=== PATIENT | female | born 1965 | race Hispanic/Latino ===

== ENCOUNTER 2021-05-07 11:15 | Emergency (ER) | payer SELFPAY ==
--- NOTE | 2021-05-07 13:08 | RAD REPORT ---
EXAM DESCRIPTION: RAD - Chest Single View - 05/07/2021 1:03 pm CLINICAL HISTORY: CHEST PAIN COMPARISON: No comparisons FINDINGS: Lines: None. Lungs: No evidence of edema or pneumonia. Pleural: No significant pleural effusions or pneumothorax. Cardiac: The heart size is within normal limits. Bones: No acute fractures. Other: IMPRESSION: No acute cardiopulmonary disease.
[2021-05-07] MEDS ORDERED: MAGNES/ALUMIN/SIMET 30ML UCUP ONE (13:34)
[2021-05-07] MEDS ORDERED: LIDOCAINE VISCOUS 2% SOLN 15 ML UDC ONE (13:34)
[2021-05-07 13:38] LABS: Absolute Lymphocytes (CBC) 1.8 K/uL (0.7-4.9); Basophils % 0.3 % (0-1.3); Lymphocytes % 14.6 % (15.3-44.8); MPV 7.8 fL (7.6-11.3); RBC Red Blood Cell Count 4.19 M/uL (3.86-4.86)
[2021-05-07 13:39] LABS: Protime INR 1.01
[2021-05-07 13:58] LABS: ALT/SGPT 78 U/L (12-78); AST/SGOT 106 U/L (15-37); Albumin 3.8 g/dL (3.4-5.0); Alkaline Phosphatase 111 U/L (45-117); BUN Blood Urea Nitrogen 13 mg/dL (7-18); Bicarbonate 25 mmol/L (21-32); Bilirubin Direct 0.2 mg/dL (0-0.2); Bilirubin Total 0.5 mg/dL (0.2-1.0); Glucose Level 118 mg/dL (74-106); Magnesium 2.1 mg/dL (1.8-2.4); NT PRO-BNP 87 pg/mL (<125); Potassium 3.1 mmol/L (3.5-5.1); Protein, Total 7.8 g/dL (6.4-8.2); Sodium Level 142 mmol/L (136-145); Troponin (Emerg Dept Use Only) < 0.02 ng/mL (0.0-0.045)
--- NOTE | 2021-05-07 15:17 | EDPHYS ---
Physician Documentation [facility] Name: Celia Smith Age: 56 yrs Sex: Female : 1965 Arrival Date: 05/07/2021 Time: 11:19 Bed 15 Private MD: ED Physician Nahum Esquivel HPI: 05/07 20:08 This 56 yrs old Female presents to ER via Ambulatory with complaints of Chest kdr Pain. 20:08 The patient or guardian reports chest pain that is located primarily in the substernal kdr area, xiphoid area. Onset: this morning. The pain does not radiate. Associated signs and symptoms: The patient has no apparent associated signs or symptoms, Pertinent positives: She states she feels like her medicines get stuck when she swallows and that the discomfort and tightness is in the subxiphoid region, Pertinent negatives:. The chest pain is described as aching, dull, a pressure. Duration: The patient or guardian reports multiple episodes, that are intermittent, that wax and wane, with no pattern. Severity of pain: At its worst the pain was mild moderate in the emergency department the pain is unchanged. The patient has not experienced similar symptoms in the past. 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 - Social history:: Smoking status: Patient denies any tobacco usage or history of. Patient/guardian denies using alcohol, street drugs. ROS: 20:08 Constitutional: Negative for fever, chills, and weight loss, Eyes: Negative for injury, kdr pain, redness, and discharge, ENT: Negative for injury, pain, and discharge, Neck: Negative for injury, pain, and swelling, Respiratory: Negative for shortness of breath, cough, wheezing, and pleuritic chest pain, Abdomen/GI: Negative for abdominal pain, nausea, vomiting, diarrhea, and constipation, Back: Negative for injury and pain, : Negative for injury, bleeding, discharge, and swelling, MS/Extremity: Negative for injury and deformity, Skin: Negative for injury, rash, and discoloration, Neuro: Negative for headache, weakness, numbness, tingling, and seizure activity. Psych: Negative for depression, anxiety, suicide ideation, homicidal ideation, and hallucinations, Allergy/Immunology: Negative for hives, rash, and allergies, Endocrine: Negative for neck swelling, polydipsia, polyuria, polyphagia, and marked weight changes, Hematologic/Lymphatic: Negative for swollen nodes, abnormal bleeding, and unusual bruising. 20:08 Cardiovascular: Positive for chest pain, Negative for edema, orthopnea, palpitations, paroxysmal nocturnal dyspnea. Exam: 20:08 Constitutional: This is a well developed, well nourished patient who is awake, alert, kdr and in no acute distress. Head/Face: Normocephalic, atraumatic. Eyes: Pupils equal round and reactive to light, extra-ocular motions intact. Lids and lashes normal. Conjunctiva and sclera are non-icteric and not injected. Cornea within normal limits. Periorbital areas with no swelling, redness, or edema. Neck: Trachea midline, no thyromegaly or masses palpated, and no cervical lymphadenopathy. Supple, full range of motion without nuchal rigidity, or vertebral point tenderness. No Meningismus. Chest/axilla: Normal chest wall appearance and motion. Nontender with no deformity. No lesions are appreciated. Cardiovascular: Regular rate and rhythm with a normal S1 and S2. No gallops, murmurs, or rubs. Normal PMI, no JVD. No pulse deficits. Respiratory: Lungs have equal breath sounds bilaterally, clear to auscultation and percussion. No rales, rhonchi or wheezes noted. No increased work of breathing, no retractions or nasal flaring. Abdomen/GI: Soft, non-tender, with normal bowel sounds. No distension or tympany. No guarding or rebound. No evidence of tenderness throughout. Back: No spinal tenderness. No costovertebral tenderness. Full range of motion. Skin: Warm, dry with normal turgor. Normal color with no rashes, no lesions, and no evidence of cellulitis. MS/ Extremity: Pulses equal, no cyanosis. Neurovascular intact. Full, normal range of motion. Neuro: Awake and alert, GCS 15, oriented to person, place, time, and situation. Cranial nerves II-XII grossly intact. Motor strength 5/5 in all extremities. Sensory grossly intact. Cerebellar exam normal. Normal gait. Psych: Awake, alert, with orientation to person, place and time. Behavior, mood, and affect are within normal limits. 20:23 ECG was reviewed by the Attending Physician. [facility] Vital Signs: 11:40 BP 138 / 72; Pulse 83; Resp 18; Temp 98.1; Pulse Ox 100% on R/A; Weight 53.52 kg; ap3 Height 4 ft. 11 in. (149.86 cm); Pain 5/10; 14:19 BP 132 / 61; Pulse 70; Resp 17; Pulse Ox 99% ; oh 15:44 BP 122 / 65; Pulse 86; Resp 17; Pulse Ox 100% on R/A; oh 11:40 Body Mass Index 23.83 (53.52 kg, 149.86 cm) ap3 MDM: 15:17 Patient medically screened. [facility] 20:08 Data reviewed: vital signs, nurses notes, lab test result(s), radiologic studies. kdr Counseling: I had a detailed discussion with the patient and/or guardian regarding: the historical points, exam findings, and any diagnostic results supporting the discharge/admit diagnosis, lab results, radiology results, the need for outpatient follow up. 05/07 12:34 Order name: Basic Metabolic Panel [facility] 05/07 12:34 Order name: CBC with Diff; Complete Time: 14:45 [facility] 05/07 12:34 Order name: LFT's; Complete Time: 14:45 [facility] 05/07 12:34 Order name: Magnesium; Complete Time: 14:45 [facility] 05/07 12:34 Order name: NT PRO-BNP; Complete Time: 14:45 [facility] 05/07 12:34 Order name: PT-INR; Complete Time: 14:45 [facility] 05/07 12:34 Order name: Troponin (emerg Dept Use Only); Complete Time: 14:45 [facility] 05/07 12:34 Order name: XRAY Chest (1 view); Complete Time: 14:45 [facility] 05/07 12:34 Order name: EKG; Complete Time: 12:35 [facility] 05/07 12:34 Order name: Cardiac monitoring; Complete Time: 13:31 [facility] 05/07 12:34 Order name: EKG - Nurse/Tech; Complete Time: 14:02 [facility] 05/07 12:34 Order name: Basic Metabolic Panel; Complete Time: 14:45 [facility] 05/07 12:34 Order name: IV Saline Lock; Complete Time: 13:31 [facility] 05/07 12:34 Order name: Labs collected and sent; Complete Time: 14:02 [facility] 05/07 12:34 Order name: O2 Per Protocol; Complete Time: 14:02 [facility] 05/07 12:34 Order name: O2 Sat Monitoring; Complete Time: 14:02 [facility] EC:23 Rate is 71 beats/min. Rhythm is regular, Sinus Rhythm with No ectopy. QRS [place] is kdr Normal. [place] interval is normal. QRS interval is normal. QT interval is normal. Clinical impression: NSR w/ Non-specific ST/T Changes. Administered Medications: 13:00 Drug: GI Cocktail without - (Maalox Suspension 30 ml, Lidocaine Liquid 2 % 15 oh ml) Route: PO; 15:43 Follow up: Response: No adverse reaction oh 15:39 Drug: Potassium Chloride Liquid 40 mEq Route: PO; oh 15:43 Follow up: Response: No adverse reaction oh Disposition Summary: 05/07/21 15:17 Discharge Ordered Location: Home kdr Problem: new kdr Symptoms: are resolved kdr Condition: Fair kdr Diagnosis - Chest pain, unspecified kdr - Gastro-esophageal reflux disease with esophagitis kdr - Hypokalemia kdr Followup: kdr - With: Private Physician - When: 2 - 3 days - Reason: If symptoms return, Further diagnostic work-up, Recheck today's complaints, Continuance of care, Re-evaluation by your physician Discharge Instructions: - Discharge Summary Sheet kdr - Esophagitis kdr - Gastroesophageal Reflux Disease, Adult kdr - Nonspecific Chest Pain, Adult, [id number] kdr - Hypokalemia kdr Forms: - Medication Reconciliation Form kdr - Thank You Letter kdr Prescriptions: - Pepcid 20 mg Oral Tablet - take 1 tablet by ORAL route every 12 hours for 5 days; 10 tablet; Refills: 0, kdr Product Selection Permitted Signatures: Dispatcher [employer] Nahum Brown MD MD kdr Zhanna Bañuelos RN RN ap3 Peggy Hoffman RN RN oh
--- NOTE | 2021-05-07 15:17 | ER ---
Nurse's Notes [facility] Name: Celia Smith Age: 56 yrs Sex: Female : 1965 Arrival Date: 05/07/2021 Time: 11:19 Bed 15 Private MD: Diagnosis: Chest pain, unspecified;Gastro-esophageal reflux disease with esophagitis;Hypokalemia Presentation: 05/07 11:40 Chief complaint: Patient states: she has chest tightness. It started on their way to [place] the [place] [address] two days ago. They called 911, she was taken to [place] and she was given steroids. They told her she was having indigestion and possibly asthma. She was given steriods at that visit and felt better. Today, she feels the same as she did 2 days ago. pain is in the epigastric region, and she states that "it feels like there is food stuck". Coronavirus screen: Client presents with at least one sign or symptom that may indicate coronavirus-19. Standard/surgical mask placed on the client. Ebola Screen: No symptoms or risks identified at this time. Initial Sepsis Screen: Does the patient meet any 2 criteria? No. Patient's initial sepsis screen is negative. Does the patient have a suspected source of infection? No. Patient's initial sepsis screen is negative. Risk Assessment: Do you want to hurt yourself or someone else? Patient reports no desire to harm self or others. Onset of symptoms was May 05, 2021. 11:40 Method Of Arrival: Ambulatory ap3 11:40 Acuity: HE 3 ap3 Triage Assessment: 14:23 General: Appears comfortable, Behavior is calm, cooperative. Pain: Complains of pain in oh epigastric pain. 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 - Social history:: Smoking status: Patient denies any tobacco usage or history of. Patient/guardian denies using alcohol, street drugs. Screenin:22 Abuse screen: Denies threats or abuse. Nutritional screening: No deficits noted. oh Tuberculosis screening: No symptoms or risk factors identified. Fall Risk Gait- Impaired (20 pts.). Assessment: 14:18 Pain: Pain radiates to throat Pain began 2-3 days ago. Cardiovascular: Reports chest oh pain. GI: epigastric pain. Vital Signs: 11:40 BP 138 / 72; Pulse 83; Resp 18; Temp 98.1; Pulse Ox 100% on R/A; Weight 53.52 kg; ap3 Height 4 ft. 11 in. (149.86 cm); Pain 5/10; 14:19 BP 132 / 61; Pulse 70; Resp 17; Pulse Ox 99% ; oh 15:44 BP 122 / 65; Pulse 86; Resp 17; Pulse Ox 100% on R/A; oh 11:40 Body Mass Index 23.83 (53.52 kg, 149.86 cm) ap3 ED Course: 11:19 Patient arrived in ED. mr 11:44 Triage completed. ap3 12:04 Nahum Esquivel MD is Attending Physician. kdr 12:56 Peggy Hoffman, LUIS MIGUEL is Primary Nurse. oh 13:03 XRAY Chest (1 view) In Process Unspecified. EDMS 14:22 No provider procedures requiring assistance completed. Inserted saline lock: 20 gauge oh in right antecubital area, using aseptic technique. Blood collected. 14:23 Patient has correct armband on for positive identification. Bed in low position. Call oh light in reach. Side rails up X2. 14:28 Patient maintains SpO2 saturation greater than 95% on room air. oh 14:28 quality assurance monitor on. Pulse ox on. NIBP on. oh 14:28 Arm band placed on. oh 15:45 IV discontinued, bleeding controlled, Pressure dressing applied. oh Administered Medications: 13:00 Drug: GI Cocktail without - (Maalox Suspension 30 ml, Lidocaine Liquid 2 % 15 oh ml) Route: PO; 15:43 Follow up: Response: No adverse reaction oh 15:39 Drug: Potassium Chloride Liquid 40 mEq Route: PO; oh 15:43 Follow up: Response: No adverse reaction oh Outcome: 15:17 Discharge ordered by . kdr 15:45 Discharged to home with family. oh 15:45 Condition: stable 15:45 Discharge instructions given to patient, family. 15:45 Patient left the ED. oh Signatures: Dispatcher [employer] EDNahum Up MD MD [facility] Ann Rosa mr Zhanna Bañuelos RN RN ap3 Peggy Hoffman RN RN oh
[2021-05-07] MEDS ORDERED: POTASSIUM CL SA 10 MEQ TAB PO ONE (15:50)
[2021-05-07 16:16] VITALS: TEMP 98.1
[2021-05-07 16:19] VITALS: BP 122/65; O2SAT 100
== END 2021-05-07 15:45 | disposition home or self-care (01) ==
LOC: ER 11:15
DX: K21.00 Gastro-esophageal reflux disease with esophagitis, without bleeding (principal); E87.6 Hypokalemia
CPT/HCPCS: 36415; 71045; 80048; 80076; 83735; 83880; 84484; 85025; 85610; 93005; 99285